=== PATIENT | female | born 1995 | race Two or more races ===

== ENCOUNTER 2023-12-30 12:10 | Emergency (ER) | payer MEDICAID, OTHER ==
[~2023-12-30] VITALS: Ht 165.1 cm; Wt 65.7 kg
[2023-12-30 13:30] VITALS: BP 112/72; PULSE 84; RESP 18; TEMP 98; O2SAT 97
[2023-12-30] MEDS: TETANUS-DIPTH-ACEL PERTUSSIS 0.5ML SYR Tdap IM ONE (14:44)
[2023-12-30] MEDS ORDERED: CEPH500C PO (14:50)
[2023-12-30] MEDS ORDERED: IBUP1TAB5 PO (14:50)
== END 2023-12-30 14:56 | disposition home or self-care (01) ==
LOC: ER 12:10
DX: S61.212A Laceration without foreign body of right middle finger without damage to nail, initial encounter (principal); W26.8XXA Contact with other sharp object(s), not elsewhere classified, initial encounter; Y93.89 Activity, other specified; Y92.89 Other specified places as the place of occurrence of the external cause; Y99.8 Other external cause status
CPT/HCPCS: 12001; 90471; 90715